=== PATIENT | female | born 1945 | race African-American/Black ===

== ENCOUNTER 2019-10-21 20:12 | Emergency (ER) | payer BC, MEDICAID ==
[~2019-10-21] VITALS: Ht 162.6 cm; Wt 100.0 kg
[~2019-10-21 20:12] MED LIST: ALBU2.5V13 IH
[2019-10-21] MEDS ORDERED: ASPIRIN 81MG TABLET PO ONE (22:30)
[2019-10-21 23:23] LABS: CHLORIDE 106 mEq/L (98-107)
[2019-10-21 23:39] LABS: BASOPHILS % 0.7 % (0.0-2.0); EOSINOPHILS % 0.8 % (0.0-5.0); HEMATOCRIT. 38.2 % (36.0-48.0); HEMOGLOBIN. 12.4 g/dL (12.0-16.0); LYMPHOCYTES % 23.1 % (20.0-50.0); MEAN CORPUSCULAR HEMOGLOBIN 28.1 pg (28.0-32.0); MEAN CORPUSCULAR VOLUME 86.6 fL (81.0-99.0); MONOCYTES % 10.3 % (2.0-8.0); NEUTROPHILS % 65.1 % (40.0-76.0); PLATELET 309 x1000/uL (130-400); RED BLOOD CELL COUNT 4.41 mill/uL (4.2-5.4); RED CELL DISTRIBUTION WIDTH 15.5 % (11.6-14.6)
[2019-10-22 02:03] LABS: CLARITY URINE CLOUDY (CLEAR); COLOR URINE DARK YELLOW (YELLOW); KETONES URINE NEGATIVE (NEGATIVE); LEUKOCYTE ESTERASE URINE NEGATIVE (NEGATIVE); NITRITE URINE NEGATIVE (NEGATIVE); OCCULT BLOOD URINE 3+ (NEGATIVE); PROTEIN URINE 1+ (NEGATIVE); SPECIFIC GRAVITY URINE 1.027 (1.005-1.030)
[2019-10-22] MEDS ORDERED: DIPHENHYDRAMINE 50MG/ML VIAL IV SCH (04:30)
[2019-10-22] MEDS ORDERED: KETOROLAC 30MG/ML VIAL IV SCH (04:30)
[2019-10-22 06:30] VITALS: BP 132/60
== END 2019-10-22 07:07 | disposition home or self-care (01) ==
LOC: ER 20:12
DX: R07.89 Other chest pain (principal); D25.9 Leiomyoma of uterus, unspecified; R03.0 Elevated blood-pressure reading, without diagnosis of hypertension
CPT/HCPCS: 36415; 70450; 71045; 76830; 76856; 80053; 81003; 83880; 84484; 85025; 86850; 86900; 86901; 93005; 96374; 96375; 99285; J1200; J1885